=== PATIENT | male | born 1980 | race Caucasian/White ===

== ENCOUNTER 2022-10-17 10:25 | Outpatient (CLI) | payer OTHER, SELFPAY ==
[2022-10-17 14:57] LABS: Cholesterol* 202 mg/dL (90-199)
[2022-10-17 14:58] LABS: HDL Cholesterol* 59 mg/dL (>=40); LDL Cholesterol Calculated 125 mg/dL (<100); Triglycerides* 92 mg/dL (40-149)
== END 2022-10-17 10:26 | disposition home or self-care (01) ==
LOC: LKVREF 10:26
PROVIDERS: PCP Family Medicine; Visit Provider Family Medicine
DX: Z00.00 Encounter for general adult medical examination without abnormal findings (principal); F41.8 Other specified anxiety disorders; K21.9 Gastro-esophageal reflux disease without esophagitis; Z13.6 Encounter for screening for cardiovascular disorders
CPT/HCPCS: 80061

== ENCOUNTER 2023-01-15 09:20 | Outpatient (CLI) | payer OTHER, SELFPAY | END 2023-01-15 09:21 | disposition home or self-care (01) | PROVIDERS: PCP Family Medicine; Visit Provider Family Medicine | DX: Z00.00 Encounter for general adult medical examination without abnormal findings (principal); F10.20 Alcohol dependence, uncomplicated; R35.0 Frequency of micturition; Z12.5 Encounter for screening for malignant neoplasm of prostate; Z80.42 Family history of malignant neoplasm of prostate | CPT/HCPCS: 80076; 84153 ==

== ENCOUNTER 2023-08-06 16:14 | Outpatient (CLI) | payer OTHER, SELFPAY | END 2023-08-06 16:15 | disposition home or self-care (01) | PROVIDERS: PCP Family Medicine; Visit Provider Emergency Medicine | DX: R11.10 Vomiting, unspecified (principal) | CPT/HCPCS: 80076; 83690 ==

== ENCOUNTER 2024-05-12 07:58 | Outpatient (CLI) | payer OTHER, SELFPAY | END 2024-05-12 07:59 | disposition home or self-care (01) | LOC: NFLDREF 05-13 11:25 | PROVIDERS: PCP Family Medicine; Referring Provider Family Medicine; Visit Provider Family Medicine | DX: Z00.00 Encounter for general adult medical examination without abnormal findings (principal); F10.20 Alcohol dependence, uncomplicated; Z80.42 Family history of malignant neoplasm of prostate; Z12.5 Encounter for screening for malignant neoplasm of prostate; Z13.6 Encounter for screening for cardiovascular disorders | CPT/HCPCS: 80053; 80061; G0103 ==

== ENCOUNTER 2024-06-28 06:37 | Outpatient (CLI) | payer OTHER, SELFPAY ==
--- NOTE | 2024-06-28 07:46 | W.ANESCHARGE ---
Anesthesia Charges Start Date/Time Anesthesia Start Date: 06/28/24 Anesthesia Start Time: 07:23 Stop Date/Time Anesthesia Stop Date: 06/28/24 Anesthesia Stop Time: 07:41
--- NOTE | 2024-06-28 08:08 | W.ANESCHARGE ---
Anesthesia Charges Start Date/Time Anesthesia Start Date: 06/28/24 Anesthesia Start Time: 07:23 Stop Date/Time Anesthesia Stop Date: 06/28/24 Anesthesia Stop Time: 07:41
== END 2024-06-28 06:38 | disposition home or self-care (01) ==
PROVIDERS: PCP Family Medicine; Visit Provider Surgery
DX: R10.13 Epigastric pain (principal); K22.89 Other specified disease of esophagus
CPT/HCPCS: 00731; 43239; 88305; 88312; J2704; J3490

== ENCOUNTER 2024-10-28 14:32 | Outpatient (CLI) | payer OTHER, SELFPAY | END 2024-10-28 14:33 | disposition home or self-care (01) | PROVIDERS: PCP Family Medicine; Visit Provider Family Medicine | DX: I82.409 Acute embolism and thrombosis of unspecified deep veins of unspecified lower extremity (principal); E87.1 Hypo-osmolality and hyponatremia; F41.8 Other specified anxiety disorders; R41.89 Other symptoms and signs involving cognitive functions and awareness | CPT/HCPCS: 81240; 81241; 83090; 85300; 85302; 85303; 85306; 85384; 86146; 86147 ==

== ENCOUNTER 2024-12-06 10:48 | Outpatient (CLI) | payer OTHER, SELFPAY | END 2024-12-06 10:49 | disposition home or self-care (01) | PROVIDERS: PCP Family Medicine; Visit Provider Family Medicine | DX: I82.409 Acute embolism and thrombosis of unspecified deep veins of unspecified lower extremity (principal); R41.89 Other symptoms and signs involving cognitive functions and awareness; R56.1 Post traumatic seizures; Z01.818 Encounter for other preprocedural examination | CPT/HCPCS: 80053; 80175; 80177 ==

== ENCOUNTER 2024-12-07 14:43 | Outpatient (CLI) | payer OTHER, SELFPAY ==
--- NOTE | 2024-12-07 14:45 | CRLHL7_ITS ---
For Patients: As a result of the Cures Act, medical imaging exams and procedure reports are released immediately into your electronic medical record. You may view this report before your referring provider. If you have questions, please contact your health care provider. INDICATION: acute thrombosis, f/u DVT and bakers cysts COMPARISON: Outside study not available TECHNIQUE: A compression venous ultrasound exam was performed of both lower extremities using dorado scale imaging, color Doppler and spectral Doppler analysis. FINDINGS: Sonographic imaging of the lower extremities demonstrates normal compressibility and color Doppler venous blood flow within the common femoral, deep femoral, and proximal greater saphenous veins. Within the thighs the femoral veins are patent and compressible. At a lower level the popliteal and posterior tibial veins also show normal compressibility and color Doppler venous blood flow. In the mid calf there is short-segment thrombus within the peroneal veins bilaterally. Right posterior knee fluid collection measures 2.3 x 1.2 x 2.5 cm. Left posterior knee fluid collection measures 4.5 x 1.3 x 2.9 cm. IMPRESSION: Known DVT within the mid peroneal veins bilaterally. Bilateral popliteal cysts. Dictated by Arron Bazan MD @ 12/07/2024 6:00:25 PM (Electronically Signed)
== END 2024-12-07 14:44 | disposition home or self-care (01) ==
LOC: US 14:44
PROVIDERS: PCP Family Medicine; Visit Provider Family Medicine
DX: I82.4Z3 Acute embolism and thrombosis of unspecified deep veins of distal lower extremity, bilateral (principal)
CPT/HCPCS: 93970

== ENCOUNTER 2025-01-18 14:45 | Outpatient (RCR) | payer OTHER, SELFPAY ==
--- NOTE | 2024-10-17 09:39 | SLP.EVAL ---
ORE FEEDER Kym Mejía Start: 10/14/24 09:54 Freq: Status: Active Protocol: Document 10/14/24 09:54 LINDSEY (Rec: 10/14/24 11:48 LINDSEY [id number]) E-signed By Bill Cehn, BETTY ORE FEEDER System Review History & Reason For Referral Type of Speech Evaluation Cognition Rehabilitation Order Evaluation and Treat Date of Order 10/10/24 Reason for Referral Status post TBI and craniectomy after a fall on the ice while ice skating. Onset Date Of Patient's Problem 09/18/24 Medical Diagnosis TBI Treatment Diagnosis Cognitive-linguistic deficits Pertinent Medical History On 09/18/24, patient fell while skating in his backyard ice rink. Patient went to lay down and about two hours after the fall, patient's noted he was confused, then patient had a seizure and 911 was called. Patient had brain bleeds and swelling and was intubated for one week while they watched the swelling and then underwent a craniectomy around 09/28/24. Patient was sedated for about a week after surgery and transferred to acute rehab at [facility] on 10/07 where he had PT/OT/ST. He discharged home on 10/12/24 with 24-hour supervision. Patient reports that he will return for surgery in about 2- 3 months to put camila back on. Medications Reviewed Complication/Precautions/ Patient is wearing a helmet as Contraindication Comments he needs to return in 2-3 months for surgery to put his skull back in place. Not currently driving and recommended 24-hour supervision at home. Pain Pain Intensity 0 Pain Location & Comments Patient reports no pain at time of evaluation. Hearing Information Hearing Status WNL Vision Information Vision Status WNL Patient Orientation Orientation & Mental Status Alert and oriented x4 ORE FEEDER Initial Assessment/POC Subjective Information Subjective/Pain Comment Patient is with four children, 19-year-old twin daughters and 6 and 7-year-old boys. 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 Antony feels mentally back to normal and physically at 80% of baseline. His , Hue, reports that his processing speed is a little slower than normal and that he gets tired easily. He describes himself as someone who is outgoing, loud, hard working and not one to sit idle. He works hard, plays hard and is always on the go. Antony reports that he has had issues with alcohol and sobriety is very important to him. Caregiver's Name Hue, spouse Assessment & Impression Rehabilitation Potential Comments Patient is an excellent rehab candidate. He is highly motivated, has a high baseline ability level and has a strong family support system in place. Assessment/Impression ASSESSMENT The Repeatable Battery for the Assessment of Neuropsychological Status ( RBANS) is a neuropsychological assessment that consists of twelve subtests which give five scores, one for each of the five domains tested ( immediate memory, visuospatial /constructional, language, attention, delayed memory). The RBANS was administered with the following results: Immediate Memory List Learnin/40 Story Memory: Immediate Memory Index Score is 87 (18th percentile rank) Visuospatial/Constructional Figure Copy: Line Orientation: Visuospatial/Constructional Index Score is 112 (77th percentile rank) Language Picture Namin/10 Semantic Fluency: Language Index Score is 95 ( 37th percentile rank) Attention Digit Span: 09/12 Codin/89 Attention Index Score is 122 ( 93rd percentile rank) Delayed Memory List Recall: List Recognition: Story Recall: 08/09 Figure Recall: Delayed Recall Index Score is 95 (37th percentile rank) Sum of Index Scores = 511 Total Scale = 102 (52nd percentile) IMPRESSION: Patient was seen for a cognitive evaluation per provider orders. The RBANS was administered and results suggest that Antony is demonstrating mild high-level cognitive-linguistic deficits across multiple domains, specifically in the areas of immediate memory, language, and delayed memory. Per patient and family report, patient is also experiencing reduced cognitive endurance and slower processing speeds. Recommend outpatient speech therapy 1-2 times per week for 12 weeks to address deficit areas. Functional Limitations & Outcome/Goals Primary Functional Limitations Cognitive-linguistic deficits may impact patient's ability to complete tasks required to maintain his home (i.e. finances, busy kids schedule) and return to work. Goals/Functional Outcomes Patient goal: Get back to work and driving. LTG: Patient will report cognitive skills at or near his pre-TBI level. STG 1: Patient will verbalize understanding of cognitive assessment results and recommendations. STG 2: Patient will complete increasingly complex immediate /short-term memory tasks with 90% accuracy with use of compensatory memory strategies with min assistance to return to work. STG 3: Patient will complete increasingly complex delayed and prospective memory tasks with 90% accuracy with use of compensatory memory strategies with min assistance to return to work. STG 4: Patient will complete high-level verbal formulation and thought organizational tasks with 90% accuracy with use of strategies with min assistance to return to work. STG 5: Patient will participate in diagnostic treatment tasks addressing problem solving, executive function and higher level attention. Further goals pending results. Intervention Plan & Frequency Intervention Plan Cognitive retraining; compensatory strategy training ; patient and family education Frequency/Duration 1-2 times per week for 12 weeks Discharge Plan Patient Will be Discharged from Therapy Completion of LTG(s), Independent w/HEP Therapist Signature & License # I Certify That Therapy Services Provided, Therapy Plan Established Therapist Signature & License Number Bill RobinwillieAkbar [facility]-ORE FEEDER # [id number] Certification Date Date of First Visit for Therapy 10/14/24 Clinic Certification # #[id number] Recertification Due Date 01/06/25 Physician Signature Signature of Physician Indicates Treatment Plan,Certification Plan,Medically Needed Services Physician Signature & Date Required Please Sign/Date Here Dysphagia Education Topics Education Topics Teaching Recipient Patient,Family Teaching Methods Verbal Speech/Language Pathology Billing Units Billing Units Speech 1 Hr Cogn Perf Test 1
--- NOTE | 2024-10-21 13:56 | OT.OPGNE2 ---
OT Outpatient General/Neuro Eval OT Outpatient General/Neuro Eval* Start: 10/18/24 11:48 Freq: Status: Active Protocol: Document 10/18/24 12:43 JLMarlyn (Rec: 10/20/24 16:35 JLS [id number]) E-signed By Jina Wood OTR/L, CLT OT Outpatient Evaluation Details Type Type Eval Complexity Low Insurance Information Insurance Information Other Insurance OMR Outpatient History/Precautions Current Condition Referring Provider Jessa Medical Diagnoses S06.9XAD TBI Treatment Diagnoses memory and thinking issues. 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 Prior Medical History Prior Medical History no relevant hx to current episode Social History Lives With: Spouse Current Occupation on medical leave Patient Subjective Subjective Patient Subjective Pt presents with spouse and wearing helmet to protect open area in skull from recent craniotomy. Pain Assessment Pain Pain No Cognitive Assessments Performed Cognitive Assessments Performed Other Assessment Results MAZE Task: 45 seconds and 0 errors, cut off 61 secs Dexter Making A and B Results Pt completed Dexter-Making Test A in 42 secs, with cut off being 78 secs. Pt completed Dexter-Making Test B in 60 secs, with cut off being 273 secs. Manuel Cognitive Assessment (MOCA) Results [place] Cognitive Assessment (MoCA) 26-30 = Normal cognition 18-25= Mild Cognitive Impairment, Driving skills to be assessed for possible restricted driving recommendations. 11-17= Mild Dementia, Driving Cessation preferred, or Behind the Wheel Driving Assessment recommended, <18 indicates concern with driving safety; each 1pt decrease in score = 1 .36x more likely to fail road test. 6-10=Moderate Dementia, No Driving <6=Severe Dementia , No Driving Patient?s Score: 23/30 Vision/Hearing Vision Tracking WNL Saccades WNL Near Point of Convergence WNL Vision Changes Comments Pt reporting no visual changes , initially had blurriness in R eye but has since resolved. Pt completed VOMS screen for ocular motor dysfunction and only reporting 1/10 for headache, no other symptoms at baseline and then no additional symptoms with eye movements. Assessment Assessment Assessment Pt is a 43yr old male who sustained a TBI after falling on ice resulting in brain bleeding and swelling and a subsequent craniotomy and prolonged hospital and rehab stay. Pt referred to OT to address driving, community safety and functional cognition. Pt is limited by below baseline cognition, specifically short term memory and abstract thinking and reduced ability to self monitor for activity tolerance with TBI symtoms. Pt will benefit from skilled OT to address limitations and deficits to increase his participation and safety with ADLs/IADLs. Occupational Therapy Treatment Plan - OP Potential Rehabilitation Potential Excellent Set Goals Goals Set with Patient Yes Goals Goals 1. Pt will participate in cognitive/driving assessment and verbalize understanding of results and recommendations. 2. Patient and family to verbalize understanding of IADL screening, [place] Cognitive Assessment results and identify 3 strategies to increase patient's safety and independence with functional mobility in the community setting. 3. Pt will effectively use of 3-5 adaptive strategies, tools and environmental modifications to manage post concussion mental fog and cognitive processing Treatment Plan Treatment Plan Evaluation,Self-Care/Home Management,Caregiver Training, Education,Functional/Cognitive Skills Expected Frequency 1-2x Week Expected Duration 2-4 Weeks Certification Certification Statement I Certify That: Therapy Services Provided, Therapy Plan Established, Therapy Plan Reviewed Certification Information Clinic ID # [id number] Initial Certification Date 10/18/24 Recertification Due Date 01/16/25
--- NOTE | 2024-12-14 13:56 | ONC.NURNOTE ---
Pt's called with surgery schedule change, requesting heme consult be moved sooner. Elaine Cook to review.
--- NOTE | 2024-12-26 16:55 | SLP.DPN ---
REAL ESTATE CLOSING COORDINATOR Daily Progress Note REAL ESTATE CLOSING COORDINATOR Daily Progress Note Start: 10/17/24 12:20 Freq: Status: Active Protocol: Document 12/26/24 12:37 LINDSEY (Rec: 12/26/24 13:59 LINDSEY [id number]) E-signed By Bill Chen, REAL ESTATE CLOSING COORDINATOR REAL ESTATE CLOSING COORDINATOR Daily Progress Note Subjective Note Type Daily Note,Recertification Note Visit Number 14 Subjective/Pain Comments Patient feeling good and having better endurance at home. Occasional headaches. Pain Since Last Visit None Patient and Insurance Information Insurance Name [facility] Daily Treatment Information Interventions Provided Today Completed additional reassessment subtests today. Test of Sustained Attention and Tracking (TSAT) completed in 64 seconds with one error which shows improved processing speed from initial score of 102 seconds with no errors. Visual Auditory Learning subtest of WJ-3 completed with four errors which is a significant improvement from previous score of 13 errors. Patient has surgery schedule for December 30 to put his skull back in place. Education on plan to follow-up two weeks after surgery and then again after his return to work to ensure he continues to function well cognitively and successful return to work. Both patient and spouse are in agreement with this plan. (Sally spouse Hue attended the end of the therapy session to provide education on reassessment results and discuss POC for after surgery.) Total Treatment Time (Minutes) 75 Query Text:Eval and Treatment total time Goals/Functional Outcomes Goals/Functional Outcomes Patient goal: Get back to work and driving. LTG: Patient will report cognitive skills at or near his pre-TBI level. UPDATED SHORT TERM GOALS: In four weeks, patient will... STG 1: Complete immediate memory tasks with 95-100% accuracy with independent use of internal and external memory strategies across 3 sessions to prepare for return to work. GOAL MET 12/26/24. STG 2: Complete a variety of high level cognitive tasks with 95-100% accuracy with independent use of strategies to improve attention to detail across three sessions to prepare for return to work. GOAL MET 12/26/24. STG 3: Develop a daily routine that incorporates cognitive activities, physical activity and rest breaks to increase cognitive endurance and reduce symptoms of fatigue with min cues from spouse to prepare for return to work. GOAL MET . Daily Assessment/POC Assessment Antony has made tremendous strides in his cognitive skills and reports he is back to baseline. All cognitive reassessment show he is WNL for cognition. Plan for follow -up two weeks after surgery as well as one week after return to work to ensure there is no regression after surgery and ensure that he is functioning well at work. Treating Therapist's Name & License Bill Chen MS CCC-REAL ESTATE CLOSING COORDINATOR # Number [id number] Recertification Information Review Period 10/14/24-12/26/24 Current Treatment Frequency 1x/week Attendance Since Last Review Two sessions were missed due to weather and medical appt. Onset Date of Patient's Chief Complaint 09/18/24 Patient/Family/Caregiver is Satisfied Yes with Service Patient/Family/Caregiver is Satisfied Yes with Progress Progress Summary Antony has made steady improvement in all cognitive areas and is testing WNL across cognitive modalities. He has remain highly motivated , completed HEP and has an excellent support system. All short term goals have been met . He has gained improved insight into his deficits and feels that he will be able to return to work but also aware that he still sometimes overestimates his ability and/ or endurance. Rehab Potential/Disability Gordo Patient's rehab potential is excellent and anticipate successful return to work. Interventions Provided During Treatment Evaluation and reassessments. Comments Education to both patient and spouse. Strategy use, cognitive retraining and therapeutic activities have all been used to progress back to baseline cognitive status. Continued Plan of Care Comments Antony will be having surgery on December 30 to replace his skull with a 6-8 week recovery . He anticipates return to work in early February. Recommend a follow-up session two weeks post surgery to determine any deficits related to surgery as well as one-two weeks after return to work to ensure he is functioning well at work. Frequency/Duration 2-4 follow-up sessions over the next three months, after surgery as well as after return to work as outlined above. Patient Will Be Discharged From Therapy Completion of LTG(s) When Medical Necessity Justification of Continues to Meet Goals Continued Skilled Service Additional Medical Necessity for Skilled Antony has met all short term Service goals but will need additional follow-up due to neurosurgery appointment and to ensure he is successful with his return to work. Initial Certification Date (Date of 10/14/24 First Visit to Therapy) Most Recent Visit 12/26/24 Recertification Start Date 12/27/24 Recertification Due Date 03/26/25 Reasons to Continue Skilled Therapeutic As mentioned above, Antony would Intervention benefit from 2-4 additional therapy sessions over the next three months to ensure there are no functional deficits after his neurosurgery and to ensure he is able to perform his work duties once he returns to work. In therapy, we have addressed things he may have difficulty with and problem solved strategies but would benefit from 1-2 follow- up sessions after he has returned to work through any difficulties he may be having. Rehab Potential Excellent Continued Plan of Care & Interventions, 2-4 sessions over the next Frequency/Duration three months (after neurosurgery and after return to work) I Certify That I Have Established, All Therapy Services/Plan Provided, & Supervised Therapist Signature & License Number Bill Chen MS [facility]-REAL ESTATE CLOSING COORDINATOR # [id number] Clinic Certification # #[id number] Physician Signature Shows Agreement with Dates & Medical Necessity Treatment Plan/Cert Physician Signature & Date Required Please Sign/Date Here Speech/Language Pathology Billing Units Billing Units Cognitive Function Initial 15 1 Cognitive Function Subseq 15 4
--- NOTE | 2025-02-24 09:28 | SLP.DC ---
SENIOR CHEMIST Discharge SENIOR CHEMIST Discharge Start: 02/24/25 08:37 Freq: Status: Active Protocol: Document 02/24/25 08:37 LINDSEY (Rec: 02/24/25 09:26 LINDSEY [id number]) E-signed By Bill Chen, SENIOR CHEMIST Speech Therapy Discharge Subjective Information Subjective/Pain Antony has been very motivated during therapy to improve Comment his cognitive skills to return to work. He has had excellent support from his family and friends. Visit Information Date of First Visit 10/17/24 for Therapy Date of Last Visit 01/18/25 for Therapy Number of Visits 15 Functional Status at Discharge Goals/Functional Patient goal: Get back to work and driving. GOAL MET. Outcomes Antony has returned to driving and has been back at work for a few weeks with no concerns. LTG: Patient will report cognitive skills at or near his pre-TBI level. GOAL MET. Per patient and spouse report and per assessment, Antony has returned to baseline cognitive function. STG: Patient will report no issues with his ability to function at his job upon return to work (to be met by two weeks after return to work). GOAL MET. Interventions Provided During Treatment Interventions Evaluation Provided During SENIOR CHEMIST Education Treatment Compensatory strategy training Cognitive rehabilitation therapy and activities HEP Assessment Assessment/ Antony is a 44-year-old male who fell on the ice and Impression suffered a TBI. At the time of initial evaluation, Antony presented with overall mild high-level cognitive- linguistic deficits across multiple domains, specifically in the areas of immediate memory, language , and delayed memory. Per patient and family report, he was also experiencing reduced cognitive endurance and slower processing speeds. Antony was seen for cognitive rehabilitation therapy 1-2 times per week which focused on compensatory attention and memory strategies and exercises/activities, time pressure tasks, and building cognitive endurance. He has made steady and strong progress toward his short and long-term goals, and all were met. Re-assessment has shown that Antony has returned to his baseline cognitive abilities and both he and his spouse report that he is functioning at baseline abilities. He has returned to work with no restrictions and no performance issues. Recommendations/Reasons for Discharge Recommendations/ Met All Therapy Goals Reason for Dischrge Therapist Signature and License # Therapist Signature/ Bill Cehn MS [facility]-SENIOR CHEMIST #[id number] License Number
== END 2025-05-18 23:59 | disposition home or self-care (01) ==
PROVIDERS: PCP Family Medicine; Visit Provider Physical Medicine & Rehabilitation
DX: S06.9XAD Unspecified intracranial injury with loss of consciousness status unknown, subsequent encounter (principal); S06.5XAD Traumatic subdural hemorrhage with loss of consciousness status unknown, subsequent encounter; S06.9XAS Unspecified intracranial injury with loss of consciousness status unknown, sequela; F06.30 Mood disorder due to known physiological condition, unspecified; G47.9 Sleep disorder, unspecified; R56.9 Unspecified convulsions; Z51.89 Encounter for other specified aftercare
CPT/HCPCS: 96125; 97129; 97130; 97165; 97530; 97535

== ENCOUNTER 2025-05-12 09:01 | Outpatient (CLI) | payer OTHER, SELFPAY | END 2025-05-12 09:02 | disposition home or self-care (01) | PROVIDERS: PCP Family Medicine; Visit Provider Family Medicine | DX: Z00.00 Encounter for general adult medical examination without abnormal findings (principal); R00.1 Bradycardia, unspecified; R56.1 Post traumatic seizures; R41.89 Other symptoms and signs involving cognitive functions and awareness; R53.83 Other fatigue; Z79.899 Other long term (current) drug therapy; Z13.6 Encounter for screening for cardiovascular disorders | CPT/HCPCS: 80053; 80061; 80177; 84270; 84402; 84403; 84443; G0103 ==

== ENCOUNTER 2025-09-14 13:37 | Outpatient (CLI) | payer OTHER, SELFPAY | END 2025-09-14 13:38 | disposition home or self-care (01) | PROVIDERS: PCP Family Medicine; Visit Provider Family Medicine | DX: N13.8 Other obstructive and reflux uropathy (principal); N40.1 Benign prostatic hyperplasia with lower urinary tract symptoms; R56.1 Post traumatic seizures; Z01.818 Encounter for other preprocedural examination; Z79.899 Other long term (current) drug therapy | CPT/HCPCS: 80053; 80164; 80165; 85610; 85730; G0103 ==